=== PATIENT | female | born 1985 | race Caucasian/White ===

== ENCOUNTER 2017-08-14 08:36 | Emergency (ER) | payer BC ==
[2017-08-14 09:24] LABS: URINE PH (Dip) POC 5.5 (5.0-8.5)
[2017-08-14 09:24] LABS: URINE BLOOD (Dip) POC 2+ (NEGATIVE); URINE GLUCOSE (Dip) POC Negative (NEGATIVE); URINE KETONES (Dip) POC Negative (NEGATIVE); URINE LEUKOCYTE EST (Dip) POC Negative (NEGATIVE); URINE NITRITE (Dip) POC Negative (NEGATIVE); URINE TOTAL PROTEIN POC Trace (NEGATIVE)
[2017-08-14] MEDS: KETOROLAC 60 MG INJ IM (09:38)
== END 2017-08-14 10:04 | disposition home or self-care (01) ==
LOC: FTE 08:36
DX: M54.5 Low back pain (principal)
CPT/HCPCS: 81003; 81025; 96372; 99284-25

== ENCOUNTER 2017-09-25 15:38 | Emergency (ER) | payer BC ==
[2017-09-25 17:22] LABS: URINE BLOOD (Dip) POC 1+ (NEGATIVE); URINE GLUCOSE (Dip) POC Negative (NEGATIVE); URINE KETONES (Dip) POC Negative (NEGATIVE); URINE LEUKOCYTE EST (Dip) POC Negative (NEGATIVE); URINE NITRITE (Dip) POC Negative (NEGATIVE); URINE TOTAL PROTEIN POC Negative (NEGATIVE)
[2017-09-25 17:22] LABS: URINE PH (Dip) POC 5.5 (5.0-8.5)
[2017-09-25] MEDS: KETOROLAC 30 MG INJ IM (17:30)
[2017-09-25] MEDS: DIAZEPAM 5 MG TAB PO (17:30)
== END 2017-09-25 17:39 | disposition home or self-care (01) ==
LOC: FTE 17:39
DX: S39.92XD Unspecified injury of lower back, subsequent encounter (principal); X58.XXXD Exposure to other specified factors, subsequent encounter
CPT/HCPCS: 81003; 81025; 96372; 99284-25